=== PATIENT | male | born 1975 | race Caucasian/White ===

== ENCOUNTER 2016-10-17 10:42 | Emergency (ER) | payer BC, OTHER ==
[~2016-10-17] VITALS: Ht 190.5 cm; Wt 95.2 kg
--- NOTE | 2016-10-17 11:56 | NUR ---
Patient discharged to home in stable conditon. Written and verbal after care instructions given. Patient verbalizes understanding of instructions.pt walks in steady gait. no sign of distress.
== END 2016-10-17 11:50 | disposition home or self-care (01) ==
LOC: ER 10:42
DX: S00.83XA Contusion of other part of head, initial encounter (principal); K21.9 Gastro-esophageal reflux disease without esophagitis; X58.XXXA Exposure to other specified factors, initial encounter; Y93.67 Activity, basketball; Y99.8 Other external cause status; Y92.89 Other specified places as the place of occurrence of the external cause
CPT/HCPCS: 70486; A4663

== ENCOUNTER 2017-09-17 08:31 | Outpatient (CLI) | payer OTHER, BC ==
[2017-09-17 09:53] LABS: *BILIRUBIN,URIN NEGATIVE (NEGATIVE); *BLOOD, URINE 1+ (NEGATIVE); *CLARITY,URINE CLEAR (CLEAR); *COLOR,URINE YELLOW (YELLOW); *KETONES,URINE NEGATIVE (NEGATIVE); *PROTEIN,URINE NEGATIVE (NEGATIVE); *UROBILINOGEN,URINE 0.2 E.U./dl (NORMAL); LEUKOCYTE ESTERASE ,URINE NEGATIVE (NEGATIVE); NITRITE, URINE NEGATIVE (NEGATIVE); UGLUCOSE NEGATIVE (NEGATIVE)
[2017-09-17 09:59] LABS: BASOPHILS % (AUTO) 0.4 % (0.0-2.0); EOSINOPHILS # (AUTO) 0.2 K/uL (0.0-0.7); EOSINOPHILS % (AUTO) 2.3 % (0.0-7.0); HEMATOCRIT 46.3 % (36.7-47.1); HEMOGLOBIN 15.5 g/dL (12.5-16.3); LYMPHOCYTES # (AUTO) 2.2 K/uL (20.0-40.0); LYMPHOCYTES % (AUTO) 32.6 % (20.5-51.5); MEAN CORPUSCULAR HEMOGLOBIN 29.5 uug (23.8-33.4); MEAN CORPUSCULAR HGB CONC 34 g/dL (32.5-36.3); MEAN CORPUSCULAR VOLUME 87.9 fL (73.0-96.2); MONOCYTES # (AUTO) 0.5 K/uL (2.0-10.0); MONOCYTES % (AUTO) 7.5 % (0.0-11.0); NEUTROPHILS # (AUTO) 3.9 K/uL (1.8-8.9); NEUTROPHILS % (AUTO) 57.2 % (38.5-71.5); PLATELET COUNT (AUTO) 210 K/uL (152-348); RED BLOOD CELL COUNT(AUTO) 5.26 MIL/uL (4.06-5.63); WHITE BLOOD COUNT (AUTO) 6.8 K/uL (3.6-10.2)
[2017-09-17 10:03] LABS: BACTERIA,URINE FEW /HPF (NONE SEEN); RBC,URINE 0-3 /HPF (0-3); SQUAMOUS EPITHELIAL CELL,UR FEW /HPF (NONE SEEN); WBC,URINE 0-3 /HPF (0-3)
[2017-09-17 10:05] LABS: POTASSIUM 3.9 mmol/L (3.5-5.1)
[2017-09-17 10:17] LABS: BILIRUBIN,TOTAL 0.6 mg/dL (0.2-1.0)
[2017-09-17 10:39] LABS: THYROID STIMULATING HORMONE 0.702 mIU/mL (0.358-3.740)
[2017-09-18 06:06] LABS: TRIIODOTHYRONINE, FREE 3.2 pg/mL (2.0-4.4)
[2017-09-18 08:06] LABS: *TESTOSTERONE, SERUM 416 ng/dL (264-916)
== END 2017-09-17 23:59 | disposition home or self-care (01) ==
LOC: LAB 08:31
DX: K21.9 Gastro-esophageal reflux disease without esophagitis (principal); E78.5 Hyperlipidemia, unspecified; R53.83 Other fatigue; R53.81 Other malaise
CPT/HCPCS: 84153; 84402; 84403; 84443; 84481; 85025

== ENCOUNTER 2017-12-08 08:34 | Outpatient (CLI) | payer BC, OTHER ==
[2017-12-08 10:31] LABS: BASOPHILS % (AUTO) 0.6 % (0.0-2.0); EOSINOPHILS # (AUTO) 0.2 K/uL (0.0-0.7); EOSINOPHILS % (AUTO) 2.9 % (0.0-7.0); HEMATOCRIT 43.9 % (36.7-47.1); HEMOGLOBIN 14.9 g/dL (12.5-16.3); LYMPHOCYTES # (AUTO) 2.4 K/uL (20.0-40.0); LYMPHOCYTES % (AUTO) 36.7 % (20.5-51.5); MEAN CORPUSCULAR HEMOGLOBIN 29.4 uug (23.8-33.4); MEAN CORPUSCULAR HGB CONC 34 g/dL (32.5-36.3); MEAN CORPUSCULAR VOLUME 86.5 fL (73.0-96.2); MONOCYTES # (AUTO) 0.5 K/uL (2.0-10.0); MONOCYTES % (AUTO) 7.3 % (0.0-11.0); NEUTROPHILS # (AUTO) 3.4 K/uL (1.8-8.9); NEUTROPHILS % (AUTO) 52.5 % (38.5-71.5); PLATELET COUNT (AUTO) 237 K/uL (152-348); RED BLOOD CELL COUNT(AUTO) 5.07 MIL/uL (4.06-5.63); WHITE BLOOD COUNT (AUTO) 6.5 K/uL (3.6-10.2)
[2017-12-08 10:33] LABS: *BILIRUBIN,URIN NEGATIVE (NEGATIVE); *BLOOD, URINE Trace-intact (NEGATIVE); *CLARITY,URINE CLEAR (CLEAR); *COLOR,URINE YELLOW (YELLOW); *KETONES,URINE NEGATIVE (NEGATIVE); *PROTEIN,URINE NEGATIVE (NEGATIVE); *UROBILINOGEN,URINE 0.2 E.U./dl (NORMAL); LEUKOCYTE ESTERASE ,URINE NEGATIVE (NEGATIVE); NITRITE, URINE NEGATIVE (NEGATIVE); UGLUCOSE NEGATIVE (NEGATIVE)
[2017-12-08 10:36] LABS: BILIRUBIN,TOTAL 0.4 mg/dL (0.2-1.0); POTASSIUM 4.2 mmol/L (3.5-5.1); TOTAL PROTEIN, SERUM 7.7 g/dL (6.4-8.2)
[2017-12-08 11:08] LABS: BACTERIA,URINE FEW /HPF (NONE SEEN); RBC,URINE 0-3 /HPF (0-3); SQUAMOUS EPITHELIAL CELL,UR FEW /HPF (NONE SEEN); WBC,URINE 0-3 /HPF (0-3)
== END 2017-12-08 23:59 | disposition home or self-care (01) ==
LOC: LAB 08:34
DX: K21.9 Gastro-esophageal reflux disease without esophagitis (principal); R53.83 Other fatigue; R53.81 Other malaise
CPT/HCPCS: 36415; 85025; 85730

== ENCOUNTER 2017-12-14 06:08 | Day surgery (SDC) | payer BC, OTHER ==
[2017-12-14] MEDS ORDERED: PROPOFOL 200 MG/20 ML BOTTLE IV ONE (06:09)
[2017-12-14] MEDS ORDERED: IV LACTATED RINGERS SOLUTION 1,000 ML BAG IV ONE (06:09)
[2017-12-14] MEDS ORDERED: LIDOCAINE HCL-MPF 1% 5 ML VIAL MC ONE (06:09)
[2017-12-14] MEDS ORDERED: KETOROLAC TROMETHAMINE 30 MG INJ IM ONE (06:09)
[2017-12-14] MEDS ORDERED: CEFAZOLIN 1 G VIAL MC ONE (06:09)
[2017-12-14] MEDS ORDERED: DEXAMETHASONE SOD PHOSPHATE 4 MG INJ IV ONE (06:09)
[2017-12-14] MEDS ORDERED: ONDANSETRON 4 MG/2 ML VIAL IV ONE (06:09)
[2017-12-14] MEDS ORDERED: SEVOFLURANE 250 ML BOTTLE IH ONE (06:09)
[2017-12-14] MEDS ORDERED: BUPIVACAINE 0.25% 30 ML VIAL ONE (06:48)
[2017-12-14] MEDS ORDERED: POLYMYXIN B SULFATE 500,000 UNITS, BACITRACIN 50,000 UNITS, NORMAL SALINE 20 ML MC ONE ×3 (07:15)
[2017-12-14] MEDS ORDERED: FENTANYL CITRATE 100 MCG/2 ML AMPUL ONE (08:33)
[2017-12-14] MEDS ORDERED: OXYCODONE/APAP 5-325 MG TABLET ONE (09:41)
== END 2017-12-14 10:35 | disposition home or self-care (01) ==
LOC: DS 06:08
PROVIDERS: ATTEND Surgery
DX: K40.90 Unilateral inguinal hernia, without obstruction or gangrene, not specified as recurrent (principal)
CPT/HCPCS: 49505; 64425; A4649; A4663; J0690; J1100; J1885; J2405; J3010; J3490 ×5; J7120 ×2; C1781

== ENCOUNTER 2018-03-28 22:20 | Emergency (ER) | payer BC, OTHER ==
[~2018-03-28] VITALS: Ht 190.5 cm; Wt 99.8 kg
[2018-03-28] MEDS ORDERED: CEFAZOLIN 1 G VIAL ONE (23:14)
[2018-03-28] MEDS ORDERED: SULFAMETH/TRIMETH 800/160 MG TABLET ONE (23:15)
[2018-03-28] MEDS ORDERED: CEFAZOLIN 1 G VIAL IM ONE (23:15)
[2018-03-28] MEDS ORDERED: SULFAMETH/TRIMETH 800/160 MG TABLET PO ONE (23:15)
[2018-03-28] MEDS ORDERED: MORPHINE SULFATE 4 MG/1 ML DISP.SYRIN ONE (23:28)
--- NOTE | 2018-03-28 23:28 | NUR ---
Patient discharged to home in stable conditon. Written and verbal after care instructions given. Patient verbalizes understanding of instructions. Pt ambulated out of ER in steady gait accompanied by who will drive home. All belongings with pt. VSS. NAD noted.
[2018-03-28 23:30] VITALS: BP 121/84
[2018-03-28] MEDS ORDERED: MORPHINE SULFATE 4 MG/1 ML DISP.SYRIN IM ONE (23:30)
== END 2018-03-28 23:30 | disposition home or self-care (01) ==
LOC: ER 22:22
DX: L02.01 Cutaneous abscess of face (principal)
CPT/HCPCS: A4663; J0690; J2270

== ENCOUNTER 2020-06-15 17:19 | Emergency (ER) | payer BC, OTHER ==
[~2020-06-15] VITALS: Ht 190.5 cm; Wt 104.3 kg
--- NOTE | 2020-06-15 17:49 | NUR ---
Patient discharged to home in stable condition. Written and verbal after care instructions given. Patient verbalizes understanding of instructions. Stressed follow up or return to ER for worsening s/s.
== END 2020-06-15 17:52 | disposition home or self-care (01) ==
LOC: ER 17:22
DX: L03.211 Cellulitis of face (principal); R03.0 Elevated blood-pressure reading, without diagnosis of hypertension
CPT/HCPCS: A4663